=== PATIENT | male | born 1985 | race Caucasian/White ===

== ENCOUNTER 2018-10-09 14:29 | Emergency (ER) | payer OTHER ==
[~2018-10-09] VITALS: Ht 180.3 cm; Wt 94.8 kg
[~2018-10-09 14:29] MED LIST: ACETAMINOPHEN-1 EAC1 PO; AMBIEN 10 MG TA10 MG; ATIVAN0.5 MG PO; ATIVAN1 MG PO; BACTRIM DS TAB1 EACH PO; BENADRYL25 MG PO; FLEXERIL PO; IBUPROFEN 800800 M1 PO; KEFLEX500 MG PO; LIORESAL 10 MG10 MG PO; MELATONIN10 M3 PO; MOBIC7.5 M1 PO; NAPROSYN500 MG PO; NOHOMEMEDICATIONS; NORCO 5-325 TA1 EACH PO; PERCOCET 5-3251 EACH PO; ROBAXIN 750 MG750 M1 PO; ROBAXIN500 MG PO; TOBRAMYCIN SULFA5 ML OPHTHALMIC; TRAMADOL 50 MG50 MG PO; TRIAMCINOLONE A80 G2 TOP; TUMS PO; ULTRAM 50MG TAB50 MG PO; VITAMIN B-1100 M1 PO; ZANTAC 150MG T150 MG PO
[2018-10-09] MEDS ORDERED: ZANAFLEX4 MG PO (15:22)
[2018-10-09] MEDS ORDERED: MEDROLDOSEPACK PO (15:22)
[2018-10-09 15:35] VITALS: BP 119/82
== END 2018-10-09 15:35 | disposition home or self-care (01) ==
LOC: M.ERS 14:29
DX: G89.29 Other chronic pain (principal); M54.5 Low back pain; F17.210 Nicotine dependence, cigarettes, uncomplicated

== ENCOUNTER 2018-10-11 20:40 | Emergency (ER) | payer OTHER ==
[~2018-10-11] VITALS: Ht 180.3 cm; Wt 113.4 kg
[~2018-10-11 20:40] MED LIST changes: +MEDROLDOSEPACK PO; +ZANAFLEX4 MG PO
[2018-10-11 21:02] LABS: ABSOLUTE BASOPHILS 0.1 thou/uL (0.0-0.2); ABSOLUTE LYMPHOCYTES 3.2 thou/uL (0.8-5.3); ABSOLUTE MONOCYTES 0.4 thou/uL (0.0-1.2); ABSOLUTE NEUTROPHILS 4.3 thou/uL (1.6-8.1); BASOPHILS 1.2 %; EOSINOPHILS 0.3 %; HEMATOCRIT 48.3 % (42.0-52.0); HEMOGLOBIN 16.3 gm/dL (14.0-18.0); LYMPHOCYTES 39.7 %; MCH 31.7 pg (26.0-34.0); MCHC 33.7 g/dL (28.0-37.0); MCV 93.8 fL (80.0-100.0); MONOCYTES 4.4 %; MPV 7.1 fl. (7.2-11.1); NUCLEATED RBCS 0 /100WBC; PLATELET COUNT* 408 thou/uL (150-400); POLYS 54.4 %; RBC 5.15 mil/uL (4.50-6.00); RDW-CV 14.2 % (10.5-14.5)
[2018-10-11 21:11] LABS: CALCIUM 8.1 mg/dL (8.5-10.1); CREATININE 0.9 mg/dL (0.6-1.3); POTASSIUM 4.4 mmol/L (3.5-5.1)
[2018-10-11 21:15] LABS: ALBUMIN 3.8 g/dL (3.4-5.0); TOTAL BILIRUBIN 0.3 mg/dL (<0.1-1.0)
[2018-10-11 21:21] LABS: ALCOHOL 317 mg/dL (<10); SALICYLATE < 2.8 mg/dL (2.8-20.0)
[2018-10-11 21:22] LABS: ACETAMINOPHEN < 2 ug/mL (10-30)
[2018-10-11 22:07] VITALS: BP 134/89
== END 2018-10-11 22:51 | disposition left against medical advice (07) ==
LOC: M.ERS 20:40
PROVIDERS: Emergency Medicine
DX: F10.129 Alcohol abuse with intoxication, unspecified (principal); Y90.8 Blood alcohol level of 240 mg/100 ml or more; R11.2 Nausea with vomiting, unspecified; F17.210 Nicotine dependence, cigarettes, uncomplicated

== ENCOUNTER 2019-02-16 11:50 | Emergency (ER) | payer OTHER, MEDICAID ==
[~2019-02-16] VITALS: Ht 180.3 cm; Wt 95.3 kg
[2019-02-16] MEDS ORDERED: ACETAMINOPHEN-1 EAC1 PO (13:03)
[2019-02-16] MEDS ORDERED: KEFLEX500 M1 PO (13:03)
[2019-02-16 13:15] VITALS: BP 130/72
== END 2019-02-16 13:15 | disposition home or self-care (01) ==
LOC: M.ERS 11:50
DX: S62.632A Displaced fracture of distal phalanx of right middle finger, initial encounter for closed fracture (principal); F17.210 Nicotine dependence, cigarettes, uncomplicated; W20.8XXA Other cause of strike by thrown, projected or falling object, initial encounter; Y93.89 Activity, other specified; Y92.89 Other specified places as the place of occurrence of the external cause; Y99.8 Other external cause status

== ENCOUNTER 2019-12-31 20:55 | Emergency (ER) | payer OTHER ==
[~2019-12-31] VITALS: Ht 180.3 cm; Wt 83.9 kg
[~2019-12-31 20:55] MED LIST changes: +KEFLEX500 M1 PO
[2019-12-31 21:16] LABS: ABSOLUTE BASOPHILS 0.2 thou/uL (0.0-0.2); ABSOLUTE EOSINOPHILS 0.1 thou/uL (0.0-0.7); ABSOLUTE LYMPHOCYTES 2.9 thou/uL (0.8-5.3); ABSOLUTE MONOCYTES 0.4 thou/uL (0.0-1.2); ABSOLUTE NEUTROPHILS 3.9 thou/uL (1.6-8.1); BASOPHILS 2.4 %; EOSINOPHILS 0.7 %; HEMATOCRIT 42.2 % (42.0-52.0); HEMOGLOBIN 14.5 gm/dL (14.0-18.0); LYMPHOCYTES 39.1 %; MCH 32.5 pg (26.0-34.0); MCHC 34.4 g/dL (28.0-37.0); MCV 94.4 fL (80.0-100.0); MONOCYTES 4.9 %; MPV 6.8 fl. (7.2-11.1); NUCLEATED RBCS 0 /100WBC; PLATELET COUNT* 449 thou/uL (150-400); POLYS 52.9 %; RBC 4.47 mil/uL (4.50-6.00); WBC 7.4 thou/uL (4.0-11.0)
[2019-12-31 21:22] LABS: CALCIUM 8.2 mg/dL (8.5-10.1); CREATININE 0.6 mg/dL (0.6-1.3); POTASSIUM 3.4 mmol/L (3.5-5.1)
[2019-12-31 21:26] LABS: ALBUMIN 4.1 g/dL (3.4-5.0); TOTAL BILIRUBIN 0.2 mg/dL (<0.1-1.0); TOTAL PROTEIN 7.8 g/dL (6.4-8.2)
[2019-12-31 21:38] LABS: ACETAMINOPHEN < 2 ug/mL (10-30); SALICYLATE < 2.8 mg/dL (2.8-20.0)
[2019-12-31 21:41] LABS: ALCOHOL 466 mg/dL (<10)
[2020-01-01 00:05] LABS: URINE BILIRUBIN NEGATIVE (Negative); URINE BLOOD NEGATIVE (Negative); URINE CLARITY CLEAR; URINE COLOR STRAW; URINE GLUCOSE-RANDOM NEGATIVE (Negative); URINE KETONES NEGATIVE (Negative); URINE LEUKOCYTES-REFLEX NEGATIVE (Negative); URINE NITRITE-REFLEX NEGATIVE (Negative); URINE PROTEIN NEGATIVE (Negative); URINE SPECIFIC GRAVITY <= 1.005 (1.005-1.030); URINE UROBILINOGEN 0.2 E.U./dl (0.2-1.0)
[2020-01-01 06:49] LABS: AMP/METHAMP Negative (Negative); BARBITURATES Negative (Negative); BENZODIAZEPINES Negative (Negative); COCAINE Negative (Negative); METHADONE Negative (Negative); OPIATES Negative (Negative); PCP Negative (Negative); THC Negative (Negative)
[2020-01-01 06:56] VITALS: BP 118/78
== END 2020-01-01 06:57 | disposition left against medical advice (07) ==
LOC: M.ERS 20:55
PROVIDERS: Personal Emergency Response Attendant
DX: F10.129 Alcohol abuse with intoxication, unspecified (principal); F17.210 Nicotine dependence, cigarettes, uncomplicated; Y90.8 Blood alcohol level of 240 mg/100 ml or more